=== PATIENT | male | born 2005 | race Hispanic/Latino ===

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

== ENCOUNTER 2024-01-26 06:36 | Emergency (ER) | payer SELFPAY ==
[~2024-01-26] VITALS: Ht 177.8 cm; Wt 63.5 kg
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
[2024-01-26 07:27] VITALS: BP 121/80; PULSE 73; RESP 16; TEMP 98.3; O2SAT 98
--- NOTE | 2024-01-26 07:59 | HMCIMG ---
-CT HEAD/BRAIN W/O CONTRAST HISTORY: Trauma COMPARISON: None TECHNIQUE: Multiple sequential axial images of the head were obtained from the base of the skull through vertex. Patient was not given contrast through intravenous route. FINDINGS: The ventricles and extraventricular CSF spaces are nondilated for patient's age. There is no midline shift, mass effect or herniation. No acute intracranial bleed is seen. Visualized portion of the paranasal sinuses are grossly within normal limits. There are nasal bone fractures with displacement with adjacent soft tissue swelling and soft tissue emphysema. IMPRESSION: 1. No acute intracranial bleed is seen. Nasal bone fractures. CT was performed with one or more following dose reduction techniques: automated exposure control, adjustment of the mA and kv according to patient's size, or use of a iterative reconstruction technique.
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
[2024-01-26] MEDS ORDERED: IBUP-2070 PO (08:12)
== END 2024-01-26 08:33 | disposition home or self-care (01) ==
LOC: EDH 06:36
DX: S02.2XXA Fracture of nasal bones, initial encounter for closed fracture (principal); S09.90XA Unspecified injury of head, initial encounter; Y04.2XXA Assault by strike against or bumped into by another person, initial encounter; Y93.89 Activity, other specified; Y92.89 Other specified places as the place of occurrence of the external cause; Y99.8 Other external cause status
CPT/HCPCS: 70160; 70450; 99284